=== PATIENT | female | born 1990 | race Caucasian/White ===

== ENCOUNTER 2019-11-03 06:07 | Emergency (ER) | payer OTHER, SELFPAY ==
--- NOTE | ~2019-11-03 | CT_ITS ---
EXAMINATION: CT abdomen pelvis wo con DATE: 11/03/2019 07:27 INDICATION: Low abdominal pain and left flank pain. TECHNIQUE: Computed tomography (CT) of the abdomen and pelvis was performed without intravenous contr ast. Automated exposure control and iterative reconstruction technique were employed. The dose-length product was 656.25 mGy-cm. COMPARISON: CT abdomen and pelvis 01/24/2019 FINDINGS: The visualized portions of the lung bases are clear without pneumonia or pleural effusion. The heart size is normal. No pericardial effusion. The liver, gallbladder, spleen, pancreas, adrenal glands, and right kidney are normal. There are 3 mm and 2 mm stones in left kidney. There is mild lef t hydronephrosis and hydroureter. There is a 3 mm stone in the bladder. There are no dilated loops of bowel. The appendix is normal. There are no pathologically enlarged lymph nodes. There is no free in traperitoneal fluid. The bones are unremarkable. IMPRESSION: 1. Mild left hydronephrosis and hydroureter, likely secondary to passage of the 3 mm stone in the guille dder. 2. Small nonobstructing left kidney stones. Reviewed, dictated and finalized at location A. NG MACHINE OPERATOR IMPRESSION: 1. Mild left hydronephrosis and hydroureter, likely secondary to passage of the 3 mm stone in the bladder. 2. Small nonobstructing left kidney stones.
[2019-11-03 06:19] VITALS: BP 134/88; PULSE 116; RESP 17; TEMP 36.4; O2SAT 100
--- NOTE | 2019-11-03 06:20 | PC.NURSE ---
Patient unable to provide urine sample, states i'll try to go after the doctor sees me.
[2019-11-03 06:35] LABS: Basophils Percent Auto 0.3 % (0.2-1.2); Eosinophils Absolute Auto 0.1 K/mm3 (0-0.3); Eosinophils Percent Auto 1.5 % (0-4.4); Hematocrit 43.1 % (37.0-47.0); Hemoglobin 14.2 g/dL (12.0-15.0); Immature Granulocyte Absolute 0.02 K/mm3 (0.00-0.031); Immature Granulocyte Percent A 0.3 % (0-0.5); Lymphocytes Absolute Auto 2.92 K/mm3 (0.9-3.2); Lymphocytes Percent Auto 39.2 % (18.3-44.2); Mean Corpuscular HGB Conc 32.9 g/dl (32-36); Mean Corpuscular Volume 88.1 fl (80-100); Mean Platelet Volume 9.9 fl (7.4-10.4); Monocytes Absolute Auto 0.6 K/mm3 (0.1-0.6); Monocytes Percent Auto 7.4 % (2.6-8.5); Neutrophils Absolute Auto 3.8 K/mm3 (1.3-6.7); Neutrophils Percent Auto 51.3 % (45.5-73.1); Platelet Count Result 261 k/mm3 (150-375); Red Blood Count 4.89 M/mm3 (4.2-5.4); Red Cell Distribution Width 11.9 % (11.5-14.5); White Blood Count 7.4 K/mm3 (4.5-10.0)
[2019-11-03 06:48] LABS: Alanine Aminotransferase 21 U/L (4-35); Albumin Level 4.3 g/dL (3.5-5.1); Alkaline Phosphatase 74 U/L (38-126); Aspartate Amino Transferase 24 U/L (14-36); Bilirubin,Total 0.7 mg/dL (0.2-1.3); Blood Urea Nitrogen 15 mg/dL (7-17); Calcium 9.4 mg/dL (8.4-10.2); Carbon Dioxide 21 mmol/L (22-30); Chloride 101 mmol/L (98-107); Estimated Glomerular Filt Rate > 60; Glucose 105 mg/dL (65-105); Lipase 47 U/L (23-300); Sodium 137 mmol/L (137-145)
--- NOTE | 2019-11-03 07:23 | PC.NURSE ---
To CT via w/c.
[2019-11-03 07:46] LABS: Add Urine Microscopic? YES; Appearance Urine Cloudy (Clear); Bacteria Urine 4+ /hpf; Bilirubin Urine Negative (Negative); Blood Urine 2+ (Negative); Color Urine Yellow (Yellow); Glucose Urine UA Negative (Negative); Ketones Urine Negative (Negative); Leukocyte Esterase Ur 1+ LEU/UL (Negative); Mucus Urine Heavy /lpf; Nitrate Urine Positive (Negative); Protein Urine 1+ mg/dL (Negative); Specific Grav Ur 1.027 (1.001-1.035); Squamous Epithelial Cell Urine Many /hpf (Few); Urobilinogen Urine Negative mg/dL (<2.0); WBC Urine 21-30 /hpf
--- NOTE | 2019-11-03 08:12 | ED.ABDPAIN ---
HPI - Abdominal Pain General Chief Complaint: Abdominal Pain Stated Complaint: abdominal pain for weeks Time Seen by Provider: 11/03/19 06:18 Source: patient Mode of arrival: ambulatory Limitations: no limitations History of Present Illness HPI narrative: Patient is a 29-year-old female who presents to the emergency department complaint of abdominal pain. Patient reports onset of pain to the left lower quadrant of her abdomen a couple of weeks ago. Patient states the pain has been episodic. She typically notices pain early in the morning when she gets up to go to the bathroom. Patient states after urinating she usually has resolution of the pain. Patient has had an episode of 2 of pain outside of audit clerk that have been brief in nature. Patient notes the pain has been more of a sensation of pressure than anything else. This morning patient reports pain became severe and did not subside after urinating. She locates the pain in the left lower quadrant denies radiation of pain. Patient denies any dysuria or urinary frequency. She has had questionable hematuria versus vaginal spotting. She denies having had nausea or vomiting until this morning when she had 3 episodes of vomiting. Patient had diaphoresis this morning but has denied having had any fever or chills. Patient did not take any medications for her symptoms this morning. Patient reports pain has currently subsided MD elicited complaint: abdominal pain Pertinent past history: none Pain Consistency: intermittent Location: LLQ Radiation: none Migration to: no migration Exacerbating factors: nothing Associated symptoms: nausea and vomiting Related Data Home Medications Medication Instructions Recorded Confirmed norethindrone-e.estradiol-iron [Lo tablet 11/03/19 Loestrin Fe] Allergies Allergy/AdvReac Type Severity Reaction Status Date / Time amoxicillin Allergy Intermediate amoxicillin Verified 11/03/19 06:24 ([id number]) Review of Systems Review of Systems: All systems reviewed & are unremarkable except as noted in HPI and below Constitutional: Constitutional: Denies fever(s) Gastrointestinal: Gastrointestinal: Reports abdominal pain, Reports nausea and Reports vomiting Genitourinary: Genitourinary: Reports hematuria (Questionable), Denies nocturia and Denies dysuria [facility] Past Medical History Medical History (Updated 11/03/19 @ 08:28 by Sussy Dave MD) No significant past medical history Surgical History Surgical History (Updated 11/03/19 @ 08:16 by Sussy Dave MD) History of tonsillectomy Family History Family History (Updated 02/02/19 @ 13:59 by DOCTOR UNKNOWN) Mother Family history of thyroid disease Other Diabetes mellitus Family history of cardiovascular disease Family history of malignant melanoma Family history of malignant neoplasm of breast in first degree relative Hypertension Social History Social History Smoking status: Never smoker Alcohol intake: current Gender identity (if verbalized by the patient): Female Comments Additional surgical history: Correction of vesicoureteral reflux as a child, right ankle surgery, resection of neck mass Exam Const: General: cooperative, no acute distress and alert Nutritional Appearance: well nourished Orientation/consciousness: patient oriented x3 Limitations: no limitations HENMT: Mouth: Yes lip normal and Yes moist mucous membranes Resp: Effort & Inspection: normal respiratory effort Auscultation: clear to auscultation bilaterally Cardio: Rate: regular rate Rhythm: regular rhythm GI: GI Palp: Yes Soft to palpation and Yes Tenderness to palpation present (GI) (Mild left lower quadrant) Auscultation: normal bowel sounds Skin: General skin exam: normal color Neuro: General: patient oriented x3 Cognition (Neuro): normal cognition Speech: normal speech Extrem: General: normal to inspection, full ROM and no clubbing, cyanos
== END 2019-11-03 09:35 | disposition home or self-care (01) ==
PROVIDERS: Emergency Provider Emergency Medicine
DX: N13.2 Hydronephrosis with renal and ureteral calculous obstruction (principal); N39.0 Urinary tract infection, site not specified
CPT/HCPCS: 36415; 74176; 80053; 81001; 81025; 83690; 85025; 87077; 87086; 87088; 87186; 96365; 99284; J0696

== ENCOUNTER 2022-04-08 16:29 | Emergency (ER) | payer OTHER, SELFPAY ==
--- NOTE | ~2022-04-08 | US_ITS ---
EXAMINATION: US pelvic complete w TV DATE: 04/08/2022 18:08 INDICATION: Abnormal uterine bleeding Comparison:01/24/2019 TECHNIQUE: Multiple transabdominal and endovaginal sonographic images of the pelvis performed. FINDINGS: The uterus measures 7.2 x 4.2 x 5.4 cm. There is a nabothian cysts. The endometrial complex measures 5 mm. The right ovary measures 3.1 x 2.8 x 2 cm and the left ovary measures 2.2 x 1 x 1.2 cm. There are sm all follicles in each ovary. Normal doppler signal in both ovaries. There is no free fluid in the pelvis. There are no abnormal masses seen on either side. IMPRESSION: 1. Unremarkable pelvic ultrasound. Reviewed, dictated and finalized at location A.
[2022-04-08 16:45] VITALS: BP 131/79; PULSE 81; RESP 17; TEMP 36.8; O2SAT 100
--- NOTE | 2022-04-08 17:17 | ED.FEMALEGU ---
HPI - Female Genitourinary General Chief complaint: Vaginal Bleeding Stated complaint: vag dallin contreras sent Time Seen by Provider: 04/08/22 17:03 Source: patient Mode of arrival: ambulatory Limitations: no limitations History of Present Illness HPI Narrative: This is a 32 year old female that presents to the ER for abnormal uterine bleeding. Reports she started her menstrual cycle yesterday and it has been very heavy. 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 Reports she was soaking a tampon every 30 minutes. Her bleeding has somewhat slowed down now. Reports some crampy pelvic pain and low back pain. Denies fever, vomiting or dysuria. Related Data Home Medications Medication Instructions Recorded Confirmed norethindrone 1 mg-ethinyl tablet 11/03/19 estradiol 10 mcg (24)-iron 10 mcg(2) tablet (Lo Loestrin Fe) Allergies Allergy/AdvReac Type Severity Reaction Status Date / Time amoxicillin Allergy Intermediate amoxicillin Verified 03/24/22 12:31 ([id number]) Review of Systems Review of Systems: CONSTITUTIONAL: Denies fever GASTROINTESTINAL: Reports abdominal pain. Denies nausea, vomiting GENITOURINARY: Denies dysuria or hematuria. All systems reviewed & are unremarkable except as noted in HPI and below PMFSH Past Medical History Medical History (Updated 04/08/22 @ 19:36 by Maggie Contreras PA-C) History of acne History of ADHD Surgical History Surgical History (System 03/24/22 @ 12:31 by Amira Naik) History of tonsillectomy Family History Family History (System 03/24/22 @ 12:31 by Amira Naik) Mother Family history of thyroid disease Other Diabetes mellitus Family history of cardiovascular disease Family history of malignant melanoma Family history of malignant neoplasm of breast in first degree relative Hypertension Social History Social History (Updated 04/08/22 @ 17:18 by Maggie Contreras PA-C) Smoking status: Never smoker Alcohol intake: current Substance use: never Gender identity (if verbalized by the patient): Female Exam Narrative: GENERAL: Well-appearing, well-nourished, and in no acute distress. HEAD: Normocephalic, atraumatic. EYES: EOMI. CHEST: Clear to auscultation. No respiratory distress. No wheezes rales or rhonchi HEART: Regular rate and rhythm. No murmur heard. Normal peripheral pulses. ABDOMEN: Soft, nontender, nondistended, normal active bowel sounds. EXTREMITIES: Normal range of motion. No edema. SKIN: Warm, dry, no rash. NEURO: No focal deficits. Alert and oriented x3. PSYCH: Normal mood and affect PELVIC: Normal external genitalia. Normal appearing cervix. Small amount of dark red blood noted in the vaginal vault Course Consultations Consultation #1: Spoke with Dr. Ruth about patient and workup who will follow up in clinic Date: 04/08/22 Time: 19:33 Vital Signs Vital signs: Vital Signs Temperature 98.2 F 04/08/22 16:45 Pulse Rate 81 04/08/22 16:45 Respiratory Rate 17 04/08/22 16:45 Blood Pressure 131/79 04/08/22 16:45 Pulse Oximetry 100 04/08/22 16:45 Oxygen Delivery Room Air 04/08/22 16:45 Temperature 98.2 F 04/08/22 16:45 Pulse Rate 80 04/08/22 19:50 Respiratory Rate 16 04/08/22 19:50 Blood Pressure 111/78 04/08/22 19:50 Pulse Oximetry 100 04/08/22 19:50 Oxygen Delivery Room Air 04/08/22 16:45 MDM - Female Genitourinary MDM Narrative Medical decision making narrative: Patient presents the department for heavy vaginal bleeding noted since last night. She is afebrile and nontoxic-appearing. Her vitals are stable. CBC and metabolic panel without concerning findings. UA without evidence of infection. Bedside test is negative. Pelvic ultrasound is unremarkable. No concerning amount of bleeding noted on exam. Spoke with Dr. Ruth about patient and workup who will follow up in clinic. Patient is to call the office
[2022-04-08 18:08] LABS: Appearance Urine Clear (Clear); Bilirubin Urine 1+ (Negative); Blood Urine 1+ (Negative); Color Urine Yellow (Yellow); Glucose Urine UA Negative (Negative); Ketones Urine 2+ mg/dL (Negative); Leukocyte Esterase Ur Negative LEU/UL (Negative); Nitrate Urine Negative (Negative); Protein Urine Negative (Negative); Specific Grav Ur >= 1.030 (1.001-1.035); Urobilinogen Urine 0.2 mg/dL (<2.0); pH Urine 5.5 (5.0-9.0)
[2022-04-08 18:13] LABS: Mucus Urine Heavy /lpf; RBC Urine 0-2 /hpf (0-2); Squamous Epithelial Cell Urine Few /hpf (Few); WBC Urine 0-3 /hpf
[2022-04-08 18:14] LABS: Add Urine Microscopic? YES
[2022-04-08 19:04] LABS: Basophils Percent Auto 0.3 % (0.2-1.2); Eosinophils Absolute Auto 0.1 K/mm3 (0-0.3); Eosinophils Percent Auto 0.8 % (0-4.4); Hematocrit 42.2 % (37.0-47.0); Hemoglobin 14.4 g/dL (12.0-15.0); Immature Granulocyte Absolute 0.01 K/mm3 (0.00-0.031); Immature Granulocyte Percent A 0.2 % (0-0.5); Lymphocytes Absolute Auto 1.69 K/mm3 (0.9-3.2); Mean Corpuscular HGB Conc 34.1 g/dl (32-36); Mean Corpuscular Hemoglobin 30.6 pg (26-34); Mean Corpuscular Volume 89.6 fl (80-100); Mean Platelet Volume 9.4 fl (7.4-10.4); Monocytes Absolute Auto 0.4 K/mm3 (0.1-0.6); Monocytes Percent Auto 6.9 % (2.6-8.5); Neutrophils Absolute Auto 4.1 K/mm3 (1.3-6.7); Neutrophils Percent Auto 64.8 % (45.5-73.1); Platelet Count Result 248 k/mm3 (150-375); Red Blood Count 4.71 M/mm3 (4.2-5.4); Red Cell Distribution Width 11.9 % (11.5-14.5); White Blood Count 6.3 K/mm3 (4.5-10.0)
[2022-04-08 19:15] LABS: Alanine Aminotransferase 15 U/L (6-35); Albumin Level 4.7 g/dL (3.5-5.1); Alkaline Phosphatase 76 U/L (38-126); Anion Gap 9 mmol/L (8-16); Aspartate Amino Transferase 18 U/L (14-36); Bilirubin,Total 1.2 mg/dL (0.2-1.3); Blood Urea Nitrogen 15 mg/dL (7-17); Calcium 9.1 mg/dL (8.4-10.2); Carbon Dioxide 22 mmol/L (22-30); Chloride 108 mmol/L (98-107); Estimated CRCL calculation 81 ml/min; Estimated Glomerular Filt Rate > 60; Glucose 87 mg/dL (65-110); Potassium 4.1 mmol/L (3.4-5.0); Sodium 139 mmol/L (137-145)
[2022-04-08 19:16] LABS: INR 1.2; Prothrombin Time 14.5 Seconds (11.1-14.7)
[2022-04-08 19:17] LABS: Partial Thromboplastin Time 28.3 SECONDS (22.3-36.8)
[2022-04-08 19:50] VITALS: BP 111/78; PULSE 80; RESP 16; O2SAT 100
== END 2022-04-08 19:55 | disposition home or self-care (01) ==
PROVIDERS: Physician Assistant; Emergency Provider General Practice
DX: N93.8 Other specified abnormal uterine and vaginal bleeding (principal); F90.9 Attention-deficit hyperactivity disorder, unspecified type
CPT/HCPCS: 36415; 76830; 76856; 80053; 81001; 81025; 85025; 85610; 85730; 86850; 86900; 86901; 99284